=== PATIENT | female | born 1955 | race African-American/Black ===

== ENCOUNTER 2020-07-05 13:25 | Inpatient (IN) | payer OTHER ==
[~2020-07-05] VITALS: Ht 170.2 cm; Wt 89.8 kg
[2020-07-05] MEDS ORDERED: CLONIDINE 0.1MG TABLET PO ONE (15:00)
[2020-07-05] MEDS ORDERED: LORAZEPAM 2MG/ML CPJ IV ONE (15:00)
[2020-07-05] MEDS ORDERED: ASPIRIN 325MG EC TABLET PO ONE (15:00)
[2020-07-05] MEDS ORDERED: SODIUM CHLORIDE 0.9% 500 ML IV ONE (15:00)
[2020-07-05 15:37] LABS: CHLORIDE 105 mEq/L (98-107)
[2020-07-05 15:41] LABS: D-DIMER 1.3 mg/L FEU (<0.50); ETHANOL BLOOD < 10 mg/dL; INR 1.2; PROTHROMBIN TIME 12.9 sec (9.6-11.0)
[2020-07-05 15:45] LABS: BASOPHILS % 0.8 % (0.0-2.0); HEMATOCRIT. 35.2 % (36.0-48.0); HEMOGLOBIN. 11.7 g/dL (12.0-16.0); LYMPHOCYTES % 10.8 % (20.0-50.0); MEAN CORPUSCULAR HEMOGLOBIN 38.2 pg (28.0-32.0); MEAN CORPUSCULAR VOLUME 114.7 fL (81.0-99.0); MEAN PLATELET VOLUME 10.2 fl (7.4-10.4); MONOCYTES % 4.7 % (2.0-8.0); NEUTROPHILS % 83.7 % (40.0-76.0); PLATELET 250 x1000/uL (130-400); RED BLOOD CELL COUNT 3.07 mill/uL (4.2-5.4); RED CELL DISTRIBUTION WIDTH 15.6 % (11.6-14.6)
[2020-07-05] MEDS ORDERED: MORPHINE SULFATE 4 MG/ML CPJ (NOT FOR IM USE) IV STA (16:14)
[2020-07-05] MEDS ORDERED: ONDANSETRON HCL 4MG/2ML INJ IV STA (16:14)
[2020-07-05] MEDS ORDERED: NITROGLYCERIN OINT 1GM/INCH UDPKT TD ONE (16:15)
[2020-07-05] MEDS ORDERED: AZITHROMYCIN 500 MG in DEXT 5% WATER 250 ML IV ONE (16:30)
[2020-07-05] MEDS ORDERED: CEFTRIAXONE 1 G PREMIX 50 ML IV ONE (16:30)
[2020-07-05 16:54] LABS: PLATELET ESTIMATE NORMAL
[2020-07-05] MEDS ORDERED: METOPROLOL TARTRATE 50MG TABLET PO NR (17:45)
[2020-07-05] MEDS ORDERED: ONDANSETRON HCL 4MG/2ML INJ IV PRN (17:45)
[2020-07-05] MEDS ORDERED: ENOXAPARIN 40MG/0.4ML SYR SUBCUT SCH (18:30)
[2020-07-05 18:33] LABS: HEPATITIS B SURFACE ANTIGEN NEGATIVE
[2020-07-05] MEDS: AMLODIPINE 10MG TABLET PO SCH (18:37)
[2020-07-05] MEDS: FUROSEMIDE 40MG/4ML VIAL IVP SCH (18:38)
[2020-07-05 19:02] LABS: HEPATITIS A AB IGM NEGATIVE (NEGATIVE)
[2020-07-05 20:00] VITALS: BP 110/79
[2020-07-05] MEDS: METOPROLOL TARTRATE 50MG TABLET PO SCH (20:14)
[2020-07-05] MEDS ORDERED: GABA800T97 MT (23:39)
[2020-07-05] MEDS ORDERED: LOSA100T32 MT (23:39)
[2020-07-05] MEDS ORDERED: HYDR-4009 PO (23:39)
[2020-07-06] VITALS: BP 138/96
[2020-07-06 04:00] VITALS: BP 145/103
[2020-07-06] MEDS ORDERED: CLONIDINE 0.1MG TABLET PO PRN (05:00)
[2020-07-06] MEDS ORDERED: *PATIENT'S OWN MEDICATION STORAGE XX SCH (07:45)
[2020-07-06 08:00] VITALS: BP 142/100
[2020-07-06] MEDS: FUROSEMIDE 40MG/4ML VIAL IVP SCH (08:19)
[2020-07-06] MEDS: METOPROLOL TARTRATE 50MG TABLET PO SCH (08:20)
[2020-07-06] MEDS: AMLODIPINE 10MG TABLET PO SCH (08:20)
[2020-07-06] MEDS ORDERED: AZITHROMYCIN 250 MG TABLET PO SCH (09:00)
[2020-07-06] MEDS ORDERED: ASPIRIN 81MG TABLET PO SCH (09:00)
[2020-07-06] MEDS ORDERED: DEXAMETHASONE 4MG/ML 1ML VIAL IV SCH (11:00)
[2020-07-06] MEDS ORDERED: LORAZEPAM 2MG/ML CPJ IV PRN (11:00)
[2020-07-06] MEDS ORDERED: ALBUTEROL 6.7GM HFA INHALER ORI PRN (11:00)
[2020-07-06 11:54] VITALS: BP 137/92
[2020-07-06] MEDS ORDERED: ENOXAPARIN 100MG/ML SYR SUBCUT SCH (12:30)
[2020-07-06] MEDS ORDERED: CEFTRIAXONE 1,000 MG in DEXTROSE 5% WATER 50 ML IV SCH ×2 (15:00→18:00)
== END 2020-07-06 13:46 | disposition left against medical advice (07) | DRG 720 ==
LOC: ER 13:49 → 7WST 16:26 → EDBEDREQ 16:44 → ENRESERV 17:17
PROVIDERS: ADMIT Internal Medicine; ATTEND Internal Medicine
DX: A41.89 Other specified sepsis (principal); E78.5 Hyperlipidemia, unspecified; E87.70 Fluid overload, unspecified; F41.0 Panic disorder [episodic paroxysmal anxiety]; I21.4 Non-ST elevation (NSTEMI) myocardial infarction; J12.82 Pneumonia due to coronavirus disease 2019; J96.01 Acute respiratory failure with hypoxia; U07.1 COVID-19; R74.01 Elevation of levels of liver transaminase levels; N17.9 Acute kidney failure, unspecified; E44.0 Moderate protein-calorie malnutrition; I16.0 Hypertensive urgency; I11.0 Hypertensive heart disease with heart failure; I50.43 Acute on chronic combined systolic (congestive) and diastolic (congestive) heart failure
CPT/HCPCS: 36415; 71045; 76700; 78582; 80053; 80061; 80320; 82728; 83605; 83615; 83880; 84145; 84443; 84484; 85025; 85379; 86140; 86705; 86709; 86803; 87340; 93005; 99291; A9558; J0456; J0696; J1100; J1650; J1940; J2060; J2270; J2405; J7060; U0003; G0480